=== PATIENT | male | born 1965 | race African-American/Black ===

== ENCOUNTER 2017-02-23 18:06 | Emergency (ER) | payer SELFPAY ==
--- NOTE | 2017-02-24 08:17 | ER ---
ADMIT: 02/23/2017 RM/LOC: [facility] MR#: [id number] [facility] [address] [place], [place] [id number] VESTA LEMONS B [address] [place], [place] [address] Emergency Room Report SEX: M AGE: 51 : 1965 DATE: 02/23/2017 See T-sheet for complete H and P. ADDENDUM: A 51-year-old gentleman otherwise healthy. No risk factors for coronary artery disease and no strong family history, comes in complaining of some chest pain. It has been intermittent for the past week to week and a half. He does do exertional work and works with his arms, which is quite strenuous. There is a bit of a cultural difficulty in explanation of his symptoms, but it sounds like this is mainly worse with movement of his extremities and trunk, but there may be a slight exertional component to it. He has no strong family coronary artery disease history. He does have some reproducible tenderness on palpation of his chest. I will be checking CBC, chemistries, cardiac enzymes, and chest x-ray, which results of those are pending at this time. I did get an EKG on the patient and it shows sinus rhythm, rate of 72, no signs of ST-elevation or acute SC. The results of his tests and final disposition will be done by Dr. Dotson, who I am handling the patient off too. José Luis Mcdermott MD/ alvarez JOB #: [id number] CC: José Luis Mcdermott MD, Attending Physician Pepe Black MD, Family Physician
--- NOTE | 2017-02-24 19:27 | ER ---
ADMIT: 02/23/2017 RM/LOC: ER [facility] MR#: [id number] [place], [place] [address] VESTA LEMONS B [address] [place] [address] Emergency Room Report SEX: M AGE: 51 : 1965 DATE: 02/23/2017 The patient was signed out to me. The patient is a 51-year-old male with no chronic past medical history, who came to the ER with a chief complaint of anterior and posterior chest pain which waxes and wanes that the patient had for 1 week and increases with movement of extremities. EKG did not show any ST or T changes or arrhythmia or Q waves. Cardiac enzymes are negative and chest x-ray was also negative. The patient was reexamined and pain at the moment got better. Considering the patient's presentation, atypical chest pain, chest wall pain is at the top of our differentials. The patient was discharged to home with Motrin p.o. and follow up with the primary doctor as needed. Og Dotson MD/ alvarez JOB #: [id number] CC: José Luis Mcdermott MD, Attending Physician Pepe Black MD, Family Physician
== END 2017-02-23 19:50 | disposition home or self-care (01) ==
LOC: ER 18:06
DX: R07.89 Other chest pain (principal)